=== PATIENT | male | born 1985 | race African-American/Black ===

== ENCOUNTER 2019-04-24 11:45 | Inpatient (IN) ==
[2019-04-24] MEDS ORDERED: LIDOCAINE 2%/EPI 20 ML VIAL ONE (18:08)
[2019-04-24] MEDS ORDERED: LIDOCAINE 1% 20 ML VIAL ONE (18:08)
[2019-04-24] MEDS ORDERED: PROPOFOL 200 MG/20 ML VIAL IV ONE (19:17)
[2019-04-24] MEDS ORDERED: fentaNYL 100 MCG/2 ML VIAL ONE (19:18)
[2019-04-24] MEDS ORDERED: SEVOFLURANE 1 UNIT/15 MINUTE INH ONE (19:18)
[2019-04-24] MEDS ORDERED: MIDAZOLAM 2 MG/2 ML VIAL ONE (19:18)
[2019-04-24] MEDS ORDERED: PHENYLEPHRINE 1 MG/10 ML SYRINGE IV ONE (19:18)
[2019-04-24] MEDS ORDERED: ONDANSETRON 4 MG/2 ML VIAL ONE (19:18)
[2019-04-24] MEDS ORDERED: DEXAMETHASONE 4 MG/1 ML VIAL ONE (19:18)
[2019-04-24] MEDS ORDERED: SUCCINYLCHOLINE 200 MG/10 ML VIAL ONE (19:19)
[2019-04-24] MEDS ORDERED: ROCURONIUM 100 MG/10 ML VIAL IV ONE (19:19)
[2019-04-24 19:31] LABS: ABG HCO3 23.6 MMOL/L (20-26); ABG Oxygen Saturation 99.1 % (95-100); ABG PCO2 32.4 MM HG (35-48); ABG PH 7.445 (7.35-7.45); ABG TCO2 19.4 MMOL/L (23-27); Allen Test Positive; Pt O2 Delivery Device Ventilator
[2019-04-24] MEDS: PROPOFOL 1,000 MG/100 ML BOTTLE IV SCH ×2 (19:50→22:24)
[2019-04-24] MEDS: LACTATED RINGERS 1,000 ML IV SCH (20:30)
[2019-04-24] MEDS: MEROPENEM 500 MG in SODIUM CHLORIDE 0.9% 100 ML IV SCH (20:42)
[2019-04-24] MEDS: FAMOTIDINE 20 MG/2 ML VIAL IV SCH (20:42)
[2019-04-24] MEDS: DEXAMETHASONE 4 MG/1 ML VIAL IV SCH (20:42)
[2019-04-24] MEDS ORDERED: VANCOMYCIN INJ 1,750 MG in SODIUM CHLORIDE 0.9% 500 ML IV ONE (21:00)
[2019-04-24] MEDS ORDERED: LINEZOLID INJ 600 MG in PREMIX 1 EACH IV SCH (22:00)
[2019-04-24 22:04] LABS: Albumin 3.1 G/DL (3.4-5.0); Bilirubin,Total 0.8 MG/DL (0.2-1.0); Calcium 8.5 MG/DL (8.5-10.1); Osmolality,Calculated 277.8 MOS/KG (273-304); Total Protein 7.7 G/DL (6.4-8.3)
[2019-04-25] MEDS: PROPOFOL 1,000 MG/100 ML BOTTLE IV SCH ×6 (00:58→23:03)
[2019-04-25] MEDS: MEROPENEM 500 MG in SODIUM CHLORIDE 0.9% 100 ML IV SCH ×4 (01:21→22:07)
[2019-04-25 03:43] LABS: ABG Base Excess -0.9 MMOL/L (-2.5-2.5); ABG HCO3 23.7 MMOL/L (20-26); ABG Oxygen Saturation 99.8 % (95-100); ABG PCO2 39.5 MM HG (35-48); ABG TCO2 21.2 MMOL/L (23-27); Allen Test Positive; Pt O2 Delivery Device Ventilator
[2019-04-25] MEDS: DEXAMETHASONE 4 MG/1 ML VIAL IV SCH ×3 (03:44→18:37)
[2019-04-25] MEDS: LACTATED RINGERS 1,000 ML IV SCH ×6 (05:23→21:21)
[2019-04-25 05:24] LABS: Basophils % 0.1 % (0.0-0.8); Hematocrit 37.5 VOL% (42.0-52.0); Hemoglobin 11.9 GM/DL (14.0-18.0); Immature Granulocytes % 0.7 %; Immature Granulocytes Absolute 0.13 #; Lymphocytes # 1.1 10*3/uL (1.4-4.0); Lymphocytes % 6.4 % (21.2-54.2); Mean Corpuscular HGB Conc 31.7 GM/DL (32-36); Mean Corpuscular Volume 77.5 FL (87-102); Mean Platelet Volume 11.3 FL (9.6-12.0); Monocytes % 4.3 % (1.7-12.7); Neutrophils % 88.5 % (38.7-73.9); Platelet Count 289 T/CUMM (130-400); Red Blood Count 4.84 MC/CUMM (3.8-5.5); Red Cell Distribution Width 12.3 % (9.3-17.3); White Blood Count 17.5 T/CUMM (4-12)
[2019-04-25 05:43] LABS: Calcium 8.9 MG/DL (8.5-10.1); Osmolality,Calculated 278.5 MOS/KG (273-304)
[2019-04-25] MEDS: VANCOMYCIN INJ 1,750 MG in SODIUM CHLORIDE 0.9% 500 ML IV SCH ×2 (09:27→20:02)
[2019-04-25] MEDS: FAMOTIDINE 20 MG/2 ML VIAL IV SCH ×2 (09:27→20:02)
[2019-04-25] MEDS ORDERED: cloNIDine 0.3 MG/24 HR PATCH TRANSDERM SCH (12:00)
[2019-04-25] MEDS: ENOXAPARIN 40 MG/0.4 ML SYRINGE SUBCUT SCH (14:00)
[2019-04-25 16:15] LABS: Apearance,Urine CLEAR (Clear); Bilirubin,Urine Negative (Negative); Blood, Urine Small mg/dL (Negative); Glucose,Urine (UA) Negative (Negative); Ketones,Urine Negative (Negative); Mucus,Urine Occasional /LPF (Occasional); Nitrite,Urine Negative (Negative); Protein,Urine 30 MG/DL; RBC,Urine 11 /HPF (0-4); Urine Color Yellow (Yellow); Urine Specific Gravity 1.021 (1.001-1.035); Urine Urobilinogen < 2.0 EU/DL (0.2-1.0); WBC,Urine 1 /HPF (0-6)
[2019-04-25] MEDS: MORPHINE 4 MG/1 ML VIAL IV PRN (20:02)
[2019-04-26] MEDS: LACTATED RINGERS 1,000 ML IV SCH ×4 (01:58→22:56)
[2019-04-26] MEDS: MEROPENEM 500 MG in SODIUM CHLORIDE 0.9% 100 ML IV SCH ×4 (02:16→20:34)
[2019-04-26] MEDS: PROPOFOL 1,000 MG/100 ML BOTTLE IV SCH ×3 (02:39→10:26)
[2019-04-26 03:09] LABS: ABG Base Excess 0.8 MMOL/L (-2.5-2.5); ABG HCO3 25.2 MMOL/L (20-26); ABG Oxygen Saturation 99.3 % (95-100); ABG PCO2 39.7 MM HG (35-48); ABG PH 7.413 (7.35-7.45); ABG TCO2 22.4 MMOL/L (23-27); Allen Test Positive; Pt O2 Delivery Device Ventilator
[2019-04-26 05:57] LABS: Basophils # 0.1 10*3/uL (0.0-0.2); Basophils % 0.2 % (0.0-0.8); Immature Granulocytes Absolute 0.21 #; Lymphocytes # 1.3 10*3/uL (1.4-4.0); Lymphocytes % 5.8 % (21.2-54.2); Mean Corpuscular HGB Conc 30.6 GM/DL (32-36); Mean Corpuscular Volume 78.6 FL (87-102); Mean Platelet Volume 10.7 FL (9.6-12.0); Monocytes % 5.6 % (1.7-12.7); Neutrophils % 87.4 % (38.7-73.9); Platelet Count 332 T/CUMM (130-400); Red Blood Count 4.58 MC/CUMM (3.8-5.5); Red Cell Distribution Width 12.7 % (9.3-17.3); White Blood Count 21.9 T/CUMM (4-12)
[2019-04-26 06:17] LABS: Calcium 8.3 MG/DL (8.5-10.1); Osmolality,Calculated 290.7 MOS/KG (273-304)
[2019-04-26 06:28] LABS: Hypochromasia 1+; Lymphocytes 7 % (20-55); Platelet Estimate Adequate; Segmented Neutrophils 87 % (50-85); Total Cells Counted 100
[2019-04-26] MEDS ORDERED: MIDAZOLAM 2 MG/2 ML VIAL IV ONE (07:56)
[2019-04-26] MEDS: MORPHINE 4 MG/1 ML VIAL IV PRN ×2 (08:43→14:52)
[2019-04-26] MEDS: FAMOTIDINE 20 MG/2 ML VIAL IV SCH ×2 (10:27→20:38)
[2019-04-26] MEDS: VANCOMYCIN INJ 1,750 MG in SODIUM CHLORIDE 0.9% 500 ML IV SCH ×2 (10:30→20:39)
[2019-04-26] MEDS ORDERED: RACEPINEPHRINE 0.5 ML NEB RESP TX PRN (11:18)
[2019-04-26] MEDS: ENOXAPARIN 40 MG/0.4 ML SYRINGE SUBCUT SCH (13:15)
[2019-04-26] MEDS ORDERED: ONDANSETRON 4 MG/2 ML VIAL IV PRN (23:08)
[2019-04-27] MEDS: MEROPENEM 500 MG in SODIUM CHLORIDE 0.9% 100 ML IV SCH ×2 (02:34→09:27)
[2019-04-27 05:00] LABS: ABG Base Excess 3.2 MMOL/L (-2.5-2.5); ABG HCO3 27.8 MMOL/L (20-26); ABG Oxygen Saturation 97.6 % (95-100); ABG PCO2 42.8 MM HG (35-48); ABG PH 7.431 (7.35-7.45); ABG PO2 100.7 MM HG (80-95); ABG TCO2 29.1 MMOL/L (23-27); Allen Test Positive
[2019-04-27 06:16] LABS: Basophils % 0.2 % (0.0-0.8); Eosinophils % 0.1 % (0.00-10.9); Hematocrit 37.9 VOL% (42.0-52.0); Hemoglobin 11.4 GM/DL (14.0-18.0); Immature Granulocytes Absolute 0.16 #; Lymphocytes # 2.5 10*3/uL (1.4-4.0); Lymphocytes % 15.8 % (21.2-54.2); Mean Corpuscular HGB Conc 30.1 GM/DL (32-36); Mean Corpuscular Volume 79.6 FL (87-102); Mean Platelet Volume 10.3 FL (9.6-12.0); Monocytes % 10.6 % (1.7-12.7); Neutrophils % 72.3 % (38.7-73.9); Platelet Count 348 T/CUMM (130-400); Red Blood Count 4.76 MC/CUMM (3.8-5.5); Red Cell Distribution Width 12.7 % (9.3-17.3); White Blood Count 15.5 T/CUMM (4-12)
[2019-04-27] MEDS: LACTATED RINGERS 1,000 ML IV SCH (06:24)
[2019-04-27 06:33] LABS: Calcium 8.5 MG/DL (8.5-10.1); Osmolality,Calculated 286.8 MOS/KG (273-304)
[2019-04-27] MEDS: FAMOTIDINE 20 MG/2 ML VIAL IV SCH ×2 (09:28→21:11)
[2019-04-27] MEDS: VANCOMYCIN INJ 1,750 MG in SODIUM CHLORIDE 0.9% 500 ML IV SCH ×2 (10:08→21:18)
[2019-04-27] MEDS: ENOXAPARIN 40 MG/0.4 ML SYRINGE SUBCUT SCH (13:07)
[2019-04-27] MEDS: CLINDAMYCIN 15 MG/ML 100 ML/BOTTLE PO SCH ×2 (17:24→23:05)
[2019-04-27] MEDS ORDERED: ACETAMINOPHEN 500 MG TABLET PO ONE (20:44)
[2019-04-28] MEDS ORDERED: CLINDAMYCIN 15 MG/ML 100 ML/BOTTLE PO SCH (01:30)
[2019-04-28 05:33] LABS: Basophils # 0.1 10*3/uL (0.0-0.2); Basophils % 0.4 % (0.0-0.8); Eosinophils # 0.1 10*3/uL (0.0-0.87); Eosinophils % 0.4 % (0.00-10.9); Hematocrit 37.7 VOL% (42.0-52.0); Hemoglobin 11.5 GM/DL (14.0-18.0); Immature Granulocytes % 1.5 %; Immature Granulocytes Absolute 0.22 #; Lymphocytes # 2.6 10*3/uL (1.4-4.0); Lymphocytes % 17.9 % (21.2-54.2); Mean Corpuscular HGB Conc 30.5 GM/DL (32-36); Mean Corpuscular Volume 78.1 FL (87-102); Mean Platelet Volume 9.8 FL (9.6-12.0); Monocytes % 9.8 % (1.7-12.7); Platelet Count 326 T/CUMM (130-400); Red Blood Count 4.83 MC/CUMM (3.8-5.5); Red Cell Distribution Width 12.1 % (9.3-17.3); White Blood Count 14.4 T/CUMM (4-12)
[2019-04-28 05:42] VITALS: BP 173/88
[2019-04-28 05:53] LABS: Calcium 8.8 MG/DL (8.5-10.1)
== END 2019-04-28 07:20 | disposition home or self-care (01) | DRG 133 ==
LOC: N.5E 16:46 → N.ICU 19:13 → N.3E 04-27 13:57
PROVIDERS: ADMIT Otolaryngology; ATTEND Otolaryngology